=== PATIENT | female | born 1980 | race African-American/Black ===

== ENCOUNTER 2020-06-18 09:19 | Emergency (ER) | payer SELFPAY ==
[2020-06-18] VITALS (7 sets, daily range): BP systolic 121–134; BP diastolic 65–87
[~2020-06-18] VITALS: Ht 167.6 cm; Wt 113.4 kg
--- NOTE | 2020-06-18 09:20 | NUR ---
ED Nurse Note: Patient brought in by ambulance due to altered level of consciuosness. Per EMS, bystander found patient laying down on the grass and unresponsive. patient came in with eyes closed and not responding to questions, but withdraws to painful stimuli. Respirations are even and non labored.
--- NOTE | 2020-06-18 09:33 | Emergency Room Report ---
History of Present Illness General Chief Complaint: Altered Level of Consciousness Source: EMS Present Illness HPI Patient is an approximately 38-year-old female unknown past medical history brought in by EMS for altered mental status. Patient was found sleeping on grass in front of someone's home when EMS was called. Patient is non- cooperative with questioning. She keeps squinting her eyes and refuses to answer any questions. Allergies: Coded Allergies: UNABLE TO ASSESS (Unverified , 06/18/20) COVID-19 Screening Contact w/high risk pt: No Experienced COVID-19 symptoms?: No COVID-19 Testing performed AIRLINE TICKET AGENT: No Patient History Last Menstrual Period: unknown Reviewed Nursing Documentation: PMH: Agreed; PSxH: Agreed Nursing Documentation-PMH Past Medical History Deferred: Patient Unconscious Past Medical History: No Stated History Review of Systems All Other Systems: limited - Non-cooperative with questioning Physical Exam Vital Signs Date Time Temp Pulse Resp B/P (MAP) Pulse Ox O2 Delivery O2 Flow Rate FiO2 06/18/20 09:20 98.1 94 18 138/84 (102) 98 Room Air Sp02 EP Interpretation: reviewed, normal General Appearance: no apparent distress Head: normocephalic, atraumatic Eyes: bilateral eye normal inspection, bilateral eye PERRL ENT: hearing grossly normal, normal pharynx, no angioedema, normal voice Neck: full range of motion, supple/symm/no masses Respiratory: chest non-tender, lungs clear, normal breath sounds, speaking full sentences Cardiovascular #1: regular rate, rhythm, no edema Gastrointestinal: non tender, soft, overweight Rectal: deferred Musculoskeletal: no calf tenderness, no lower extremity edema Neurologic: mental health orderly III-XII nml as tested Psychiatric: other - Unable to assess at this time Skin: no rash Lymphatic: no adenopathy Medical Decision Making Diagnostic Impression: Primary Impression: Altered level of consciousness Additional Impressions: Encephalopathy UTI (urinary tract infection) ER Course Patient's labs demonstrate no significant acute abnormalities. Patient's urine is positive for methamphetamines. Patient appears to have a UTI and has been started on Rocephin. Otherwise patient's vital signs are stable. She continues to not be cooperative with questioning. Patient resting comfortably in bed. We will continue to monitor. Signed out to Dr. Lamar at 1400. Laboratory Tests Test 06/18/20 09:37 06/18/20 09:53 06/18/20 10:23 POC Whole Blood Glucose 64 MG/DL (74-106) L White Blood Count 9.4 K/UL (4.8-10.8) Red Blood Count 4.89 M/UL (4.20-5.40) Hemoglobin 12.6 G/DL (12.0-16.0) Hematocrit 38.3 % (37.0-47.0) Mean Corpuscular Volume 78 FL (80-99) L Mean Corpuscular Hemoglobin 25.7 PG (27.0-31.0) L Mean Corpuscular Hemoglobin Concent 32.8 G/DL (32.0-36.0) Red Cell Distribution Width 13.8 % (11.6-14.8) Platelet Count 379 K/UL (150-450) Mean Platelet Volume 4.9 FL (6.5-10.1) L Neutrophils (%) (Auto) 71.6 % (45.0-75.0) Lymphocytes (%) (Auto) 16.2 % (20.0-45.0) L Monocytes (%) (Auto) 7.1 % (1.0-10.0) Eosinophils (%) (Auto) 1.1 % (0.0-3.0) Basophils (%) (Auto) 4.1 % (0.0-2.0) H Sodium Level 139 MMOL/L (136-145) Potassium Level 4.9 MMOL/L (3.5-5.1) Chloride Level 104 MMOL/L (98-107) Carbon Dioxide Level 26 MMOL/L (21-32) Anion Gap 9 mmol/L (5-15) Blood Urea Nitrogen 8 mg/dL (7-18) Creatinine 1.0 MG/DL (0.55-1.30) Estimated Glomerular Filtration Rate > 60 mL/min (>60) Glucose Level 85 MG/DL (74-106) Calcium Level 8.8 MG/DL (8.5-10.1) Total Bilirubin 0.5 MG/DL (0.2-1.0) Aspartate Amino Transferase (AST) 33 U/L (15-37) Alanine Aminotransferase (ALT) 14 U/L (12-78) Alkaline Phosphatase 77 U/L (46-116) Total Protein 9.1 G/DL (6.4-8.2) H Albumin 3.2 G/DL (3.4-5.0) L Globulin 5.9 g/dL Albumin/Globulin Ratio 0.5 (1.0-2.7) L Thyroid Stimulating Hormone (TSH) 0.777 uiU/mL (0.358-3.740) Free Thyroxine 1.55 NG/DL (0.76-1.46) H Salicylates Level 3.2 ug/mL (2.8-20) Acetaminophen Level < 2 MCG/ML (10-30) L Serum Alcohol < 3 mg/dL Urine Color Pale yellow Urine Appearance Clear Urine pH 5 (4.5-8.0) Urine Specific [place] 1.020 (1.005-1.035) Urine Protein Negative (NEGATIVE) Urine Glucose (UA) Negative (NEGATIVE) Urine Ketones 1+ (NEGATIVE) H Urine Blood 2+ (NEGATIVE) H Urine Nitrite Positive (NEGATIVE) H Urine Bilirubin Negative (NEGATIVE) Urine Urobilinogen Normal MG/DL (0.0-1.0) Urine Leukocyte Esterase 1+ (NEGATIVE) H Urine RBC 2-4 /HPF (0 - 2) H Urine WBC 2-4 /HPF (0 - 2) Urine Squamous Epithelial Cells Few /LPF (NONE/OCC) Urine Bacteria Many /HPF (NONE) H Urine HCG, Qualitative Negative (NEGATIVE) Urine Opiates Screen Negative (NEGATIVE) Urine Barbiturates Screen Negative (NEGATIVE) Phencyclidine (PCP) Screen Negative (NEGATIVE) Urine Amphetamines Screen Positive (NEGATIVE) H Urine Benzodiazepines Screen Negative (NEGATIVE) Urine Cocaine Screen Negative (NEGATIVE) Urine Marijuana (THC) Screen Negative (NEGATIVE) EKG Diagnostic Results Troponin ordered: No - EKG ordered for acute encephalopathy EKG Time: 09:29 EP Interpretation: Neelam Petersen MD Rate: normal - 79 bpm Rhythm: NSR ST Segments: no acute changes ASA given to the pt in ED: No Chest X-Ray Diagnostic Results Chest X-Ray Diagnostic Results : Chest X-Ray Ordered: Yes # of Views/Limited/Complete: 1 View Indication: Other - Altered mental status EP Interpretation: Yes Interpretation: no consolidation, no effusion, no pneumothorax, no acute cardiopulmonary disease Impression: No acute disease Electronically Signed by: Neelam Petersen MD Last Vital Signs Date Time Temp Pulse Resp B/P (MAP) Pulse Ox O2 Delivery O2 Flow Rate FiO2 10/10/20 09:25 94 18 Room Air 06/18/20 09:20 98.1 138/84 (102) 98 Signed Out To: Dr. Lamar at 1400 Additional Instructions: Please note that this report is being documented using [employer] technology. This can lead to erroneous entry secondary to incorrect interpretation by the dictating instrument. Neelam Petersen M.D. Jun 18, 2020 09:33
--- NOTE | 2020-06-18 10:00 | NUR ---
ED Nurse Note: Patient taken to CT via gurney.
[2020-06-18 10:03] LABS: BASOPHILS % (AUTO) 4.1 % (0.0-2.0); EOSINOPHILS % (AUTO) 1.1 % (0.0-3.0); HEMATOCRIT 38.3 % (37.0-47.0); HEMOGLOBIN 12.6 G/DL (12.0-16.0); LYMPHOCYTES % (AUTO) 16.2 % (20.0-45.0); MEAN CORPUSCULAR VOLUME 78 FL (80-99); MONOCYTES % (AUTO) 7.1 % (1.0-10.0); NEUTROPHILS % (AUTO) 71.6 % (45.0-75.0); PLATELET COUNT 379 K/UL (150-450); RED BLOOD COUNT 4.89 M/UL (4.20-5.40); RED CELL DISTRIBUTION WIDTH 13.8 % (11.6-14.8); WHITE BLOOD COUNT 9.4 K/UL (4.8-10.8)
[2020-06-18 10:15] LABS: ANION GAP 9 mmol/L (5-15); BLOOD UREA NITROGEN 8 mg/dL (7-18); CALCIUM 8.8 MG/DL (8.5-10.1); CARBON DIOXIDE 26 MMOL/L (21-32); CHLORIDE 104 MMOL/L (98-107); SODIUM 139 MMOL/L (136-145)
--- NOTE | 2020-06-18 10:15 | NUR ---
ED Nurse Note: Patient came back from CT in stable condition.
--- NOTE | 2020-06-18 10:24 | NUR ---
ED Nurse Note: Collected urine then sent.
--- NOTE | 2020-06-18 10:25 | NUR ---
ED Nurse Note: Noted patient to be awake and moving while inserting straight cath.
[2020-06-18 10:27] LABS: ALANINE AMINOTRANSFERASE 14 U/L (12-78); ALBUMIN 3.2 G/DL (3.4-5.0); ALBUMIN/GLOBULIN RATIO 0.5 (1.0-2.7); ALKALINE PHOSPHATASE 77 U/L (46-116); ASPARTATE AMINO TRANSFERASE 33 U/L (15-37); BILIRUBIN,TOTAL 0.5 MG/DL (0.2-1.0)
[2020-06-18 10:38] LABS: POTASSIUM 4.9 MMOL/L (3.5-5.1)
[2020-06-18 10:46] LABS: APPEARANCE,URINE CLEAR; BILIRUBIN, URINE NEGATIVE (NEGATIVE); COLOR,URINE PALE YELLOW; GLUCOSE, URINE (UA) NEGATIVE (NEGATIVE); KETONES,URINE 1+ (NEGATIVE); LEUKOCYTE ESTERASE ,URINE 1+ (NEGATIVE); NITRITE,URINE POSITIVE (NEGATIVE); PH,URINE 5 (4.5-8.0); PROTEIN,URINE NEGATIVE (NEGATIVE); UROBILINOGEN,URINE NORMAL MG/DL (0.0-1.0)
[2020-06-18] MEDS ORDERED: cefTRIAXone 1 GM in NS 55 ML IVPB ONE (11:15)
--- NOTE | 2020-06-18 14:22 | NUR ---
ED Nurse Note: BS is [address] Lamar was notified. Pt is awake and speaking. Patient provided with sandwich and orange juice at the bed side.
--- NOTE | 2020-06-18 15:16 | NUR ---
ED Nurse Note: Patient is awake, crying and yelling in her room. [place] 50% consumed. Dr Lamar aware.
--- NOTE | 2020-06-18 15:51 | NUR ---
ED Nurse Note: Belongings placed on psych locker #2.
[2020-06-18] MEDS ORDERED: Haloperidol 5mg/ml Inj IM ONE (16:45)
--- NOTE | 2020-06-18 16:45 | Emergency Room Report ---
Physical Exam Vital Signs Date Time Temp Pulse Resp B/P (MAP) Pulse Ox O2 Delivery O2 Flow Rate FiO2 06/18/20 09:20 98.1 94 18 138/84 (102) 98 Room Air (Sage Lamar MD) Medical Decision Making Homeless Attestation Patient is homelss. Patient has been medically screened and is stable for outpatient follow up (Sage Lamar MD) Diagnostic Impression: Primary Impression: Altered level of consciousness Additional Impressions: Encephalopathy UTI (urinary tract infection) Amphetamine abuse ER Course Assumed care of the patient from the previous provider at approximately 1645. Please refer to initial note for full history and physical exam. Briefly, approximately 38-year-old Sujatha Leija brought in for altered mental status. Tox screen positive for amphetamines. She was found to have a urinary tract infection but labs otherwise within normal limits. Patient was originally nonverbal but now is screaming nonsensically in the ER. She required sedation w ith Haldol. Will arrange for psychiatric evaluation. PET team called Laboratory Tests Test 06/18/20 09:37 06/18/20 09:53 06/18/20 10:23 06/18/20 14:15 POC Whole Blood Glucose 64 MG/DL (74-106) L 73 MG/DL (74-106) L White Blood Count 9.4 K/UL (4.8-10.8) Red Blood Count 4.89 M/UL (4.20-5.40) Hemoglobin 12.6 G/DL (12.0-16.0) Hematocrit 38.3 % (37.0-47.0) Mean Corpuscular Volume 78 FL (80-99) L Mean Corpuscular Hemoglobin 25.7 PG (27.0-31.0) L Mean Corpuscular Hemoglobin Concent 32.8 G/DL (32.0-36.0) Red Cell Distribution Width 13.8 % (11.6-14.8) Platelet Count 379 K/UL (150-450) Mean Platelet Volume 4.9 FL (6.5-10.1) L Neutrophils (%) (Auto) 71.6 % (45.0-75.0) Lymphocytes (%) (Auto) 16.2 % (20.0-45.0) L Monocytes (%) (Auto) 7.1 % (1.0-10.0) Eosinophils (%) (Auto) 1.1 % (0.0-3.0) Basophils (%) (Auto) 4.1 % (0.0-2.0) H Sodium Level 139 MMOL/L (136-145) Potassium Level 4.9 MMOL/L (3.5-5.1) Chloride Level 104 MMOL/L (98-107) Carbon Dioxide Level 26 MMOL/L (21-32) Anion Gap 9 mmol/L (5-15) Blood Urea Nitrogen 8 mg/dL (7-18) Creatinine 1.0 MG/DL (0.55-1.30) Estimated Glomerular Filtration Rate > 60 mL/min (>60) Glucose Level 85 MG/DL (74-106) Calcium Level 8.8 MG/DL (8.5-10.1) Total Bilirubin 0.5 MG/DL (0.2-1.0) Aspartate Amino Transferase (AST) 33 U/L (15-37) Alanine Aminotransferase (ALT) 14 U/L (12-78) Alkaline Phosphatase 77 U/L (46-116) Total Protein 9.1 G/DL (6.4-8.2) H Albumin 3.2 G/DL (3.4-5.0) L Globulin 5.9 g/dL Albumin/Globulin Ratio 0.5 (1.0-2.7) L Thyroid Stimulating Hormone (TSH) 0.777 uiU/mL (0.358-3.740) Free Thyroxine 1.55 NG/DL (0.76-1.46) H Salicylates Level 3.2 ug/mL (2.8-20) Acetaminophen Level < 2 MCG/ML (10-30) L Serum Alcohol < 3 mg/dL Urine Color Pale yellow Urine Appearance Clear Urine pH 5 (4.5-8.0) Urine Specific [place] 1.020 (1.005-1.035) Urine Protein Negative (NEGATIVE) Urine Glucose (UA) Negative (NEGATIVE) Urine Ketones 1+ (NEGATIVE) H Urine Blood 2+ (NEGATIVE) H Urine Nitrite Positive (NEGATIVE) H Urine Bilirubin Negative (NEGATIVE) Urine Urobilinogen Normal MG/DL (0.0-1.0) Urine Leukocyte Esterase 1+ (NEGATIVE) H Urine RBC 2-4 /HPF (0 - 2) H Urine WBC 2-4 /HPF (0 - 2) Urine Squamous Epithelial Cells Few /LPF (NONE/OCC) Urine Bacteria Many /HPF (NONE) H Urine HCG, Qualitative Negative (NEGATIVE) Urine Opiates Screen Negative (NEGATIVE) Urine Barbiturates Screen Negative (NEGATIVE) Phencyclidine (PCP) Screen Negative (NEGATIVE) Urine Amphetamines Screen Positive (NEGATIVE) H Urine Benzodiazepines Screen Negative (NEGATIVE) Urine Cocaine Screen Negative (NEGATIVE) Urine Marijuana (THC) Screen Negative (NEGATIVE) (Sage Lamar MD) ER Course Patient signed out to me by previous physician. She has remained calm and cooperative in the emergency department. Tolerating p.o. Still awaiting PET eval. (Mervin Serrano M.D.) Reevaluation Time: 17:15 Last Vital Signs Date Time Temp Pulse Resp B/P (MAP) Pulse Ox O2 Delivery O2 Flow Rate FiO2 06/18/20 15:02 98.4 73 20 128/69 96 Room Air Reevaluation Impression Patient is been monitored in the emergency department for over 24 hours. She is now returned to her neurologic baseline, is awake, alert and oriented x3. Provided us with her name, Pat Lindsey. Patient states she is homeless and occasionally uses drugs. Does not follow-up regularly with PMD but is requesting referrals to nearby clinics. Also requesting nearby residential information. Patient denies any SI or HI at this time or other complaints. She has been receiving antibiotics for UTI will continue on oral antibiotics on an outpatient basis. Will refer her to mental health clinics in the area. She is stable for outpatient follow-up. Instructed to return with new or worsening symptoms (Sage Lamar MD) Disposition: HOME, SELF-CARE Condition: Improved Scripts Cephalexin* (KEFLEX*) 500 Mg Capsule 500 MG ORAL EVERY 12 HOURS, #14 CAP 0 Refills Prov: Sage Lamar MD 06/19/20 Referrals: NOT CHOSEN [facility]/,REFERRING (PCP) Additional Instructions: Please note that this report is being documented using [employer] technology. This can lead to erroneous entry secondary to incorrect interpretation by the dictating instrument. Sage Lamar MD Jun 18, 2020 16:45 Mervin Serrano M.D. Jun 19, 2020 05:28
--- NOTE | 2020-06-18 19:09 | NUR ---
HAND-OFF: Report given to Samantha DAVIDSON.
--- NOTE | 2020-06-18 19:14 | NUR ---
ED Nurse Note: Pt found laying in bed with eyes closed, breathing even and unlabored. No acute distress noted. Safety precautions in place, will continue to monitor.
--- NOTE | 2020-06-18 23:18 | NUR ---
ED Nurse Note: pt laying in bed, pt is awake requesting blanket. [place] offered. No acute distress noted, will continue to monitor.
--- NOTE | 2020-06-19 02:34 | NUR ---
ED Nurse Note: pt laying in bed with eyes closed, waked up when name is called. No acute distress noted, safety precautions continue to be in place.
--- NOTE | 2020-06-19 04:45 | NUR ---
ED Nurse Note: pt awake, meal provided and clean linens given. Pt able to perform self-grooming.
[2020-06-19] MEDS ORDERED: cefTRIAXone 1 GM in NS 55 ML IVPB ONE (06:00)
[2020-06-19 06:40] VITALS: BP 117/81
--- NOTE | 2020-06-19 06:40 | NUR ---
ED Nurse Note: pt laying in bed with eyes closed, breathing even and unlabored, no acute distress noted. Safety precautions in place.
--- NOTE | 2020-06-19 07:12 | NUR ---
HAND-OFF: Report given to LETY Alejandra .
--- NOTE | 2020-06-19 07:15 | NUR ---
ED Nurse Note: Received report from Samantha DAVIDSON. Pt seen sleeping in bed. Not in any distress. Safety and comfort provided. Will cont to monitor.
[2020-06-19 12:49] VITALS: BP 119/78
--- NOTE | 2020-06-19 12:53 | NUR ---
ED Nurse Note:pt. is sleeping, no signs of distress, meals provided
[2020-06-19 17:00] VITALS: BP 126/79
[2020-06-19] MEDS ORDERED: CEPHALEXIN500 MG ORAL (17:14)
[2020-06-19] MEDS ORDERED: Cephalexin 500mg cap ORAL SCH ×2 (17:45)
[2020-06-19] MEDS ORDERED: [UNRECOGNIZED DRUG - REMARK] MISC ONE (17:45)
[2020-06-19] MEDS ORDERED: cefTRIAXone 1 GM in NS 55 ML IVPB SCH (18:00)
--- NOTE | 2020-06-19 18:32 | NUR ---
ED Nurse Note:provided pt. with clothes, 3 days supply of keflex, food, list of shelters, VSS, pt. refused to leave room, called security but pt. still refusing to get off the bed, she is A/ox3, ambulatory with steady gait, security called [employer] to have pt. leave ER
[2020-06-19 20:00] VITALS: BP 136/82
--- NOTE | 2020-06-19 21:00 | NUR ---
Nurse Note: Pt is resting in bed, appears calm when not distrubed. Pt is medically cleared and ready for discharge by ER MD and psychiatrist. Pt is provided 3 day supply of prescribed medications, resources provided, clothes provided, food and water provided. Pt refuses to leave, does not get out of [facility] and states "I am not okay. I did not get treated by the hospital. I am worse than when I first came in. I am now hearing voices and you cannot help me. I am placed on a 72 hour hold and no psychiatrist has seen me. I cannot leave." RN and security at pt side. Security called [employer]; officer Kristi #[id number] and bar supervisor arrived to pt side. After an extensive assessment and converstion with pt, pt remain in ER, not on a hold. Advised to call [employer] in AM if pt remains uncooperative.
--- NOTE | 2020-06-19 23:40 | NUR ---
Nurse Note: Pt ambulated with steady gait to restroom. No signs of distress
--- NOTE | 2020-06-20 00:10 | NUR ---
Nurse Note: Pt refused vitals, not cooperative when nursing staff approachs pt. Pt not cooperating. All safety measures met; will continue to monitor.
[2020-06-20 04:00] VITALS: BP 132/74
--- NOTE | 2020-06-20 04:14 | NUR ---
Nurse Note: Pt calm, asleep when not awaken. Pt shows no signs of distress. Chest rise and fall noted, RA. All safety measures met; will continue to monitor.
--- NOTE | 2020-06-20 06:18 | Diagnostic Imaging Report ---
EXAM: XR Chest, 1 View CLINICAL HISTORY: AMS TECHNIQUE: Frontal view of the chest. COMPARISON: No relevant prior studies available. FINDINGS: Lungs: Unremarkable. No consolidation. Pleural space: Unremarkable. No pneumothorax. Heart: Unremarkable. No cardiomegaly. Mediastinum: Unremarkable. Bones/joints: Unremarkable. IMPRESSION: No pneumothorax.
--- NOTE | 2020-06-20 06:18 | Diagnostic Imaging Report ---
EXAM: CT Head Without Intravenous Contrast CLINICAL HISTORY: AMS TECHNIQUE: Axial computed tomography images of the head/brain without intravenous contrast. CTDI is 53.40 mGy and DLP is 1072.20 mGy-cm. One or more of the following dose reduction techniques were used: automated exposure control, adjustment of the mA and/or kV according to patient size, use of iterative reconstruction technique. COMPARISON: No relevant prior studies available. FINDINGS: No acute intracranial hemorrhage. No midline shift or mass effect. The territorial umana-white matter differentiation is maintained throughout. The ventricles and sulci are commensurate with age. The visualized orbits appear grossly unremarkable. The calvarium is intact. The visualized paranasal sinuses and mastoid air cells are grossly clear. IMPRESSION: No acute intracranial hemorrhage, midline shift, or mass effect.
--- NOTE | 2020-06-20 07:05 | NUR ---
Nurse Note: Pt arousable, still verbally agressive. Pt refuses to sit up from [facility]. Pt repeats "I am going to be placed on a 72 hr hold from [employer], not y'all.. leave my room". Pt refuses all treatment. Endorsed care to LETY Calhoun for continutiy of care.
--- NOTE | 2020-06-20 07:06 | NUR ---
ED Nurse Note: Recieved report from LETY Funez. Patient easily arousable, verbally agressive. Patient refuses to sit up from julisa otero "I am going to be placed on a 72 hr hold from [employer], leave my room". Patient AAO x4, VSS at this time, has steady gait, refusing to leave emergency room.
--- NOTE | 2020-06-20 10:41 | NUR ---
ED Nurse Note: patient refuse to get up from the g[place]et and refuse to talk awake alert dont want to leave wants to sleep .
[2020-06-20 10:43] VITALS: BP 130/70
--- NOTE | 2020-06-20 12:00 | NUR ---
PATIENT refused to talk to anyone woke up and states she doesnot want to leave [employer] is speaking to the patient
--- NOTE | 2020-06-20 13:33 | NUR ---
patient is been discharged with [facility] to go home . since patient refuse to leave [employer] helped to escort her out of the hospital
[2020-06-20 13:35] VITALS: BP 130/80
--- NOTE | 2020-06-20 13:44 | NUR ---
patient has been provided with group home referral and clinic referrals patient refuse to sign the homeless discharge paper states she doesnot wants to have anyone to know she is homeless
== END 2020-06-20 13:45 | disposition home or self-care (01) ==
LOC: EDBD 09:19 → EMR 09:32
DX: G93.40 Encephalopathy, unspecified (principal); N39.0 Urinary tract infection, site not specified; R41.82 Altered mental status, unspecified; F15.10 Other stimulant abuse, uncomplicated
CPT/HCPCS: 36415; 70450; 71045; 80053; 80307; 81003; 81025; 82962; 84439; 84443; 85025; 87086; 87181; 96361; 96365; 96366; 96372; 96375; 99285; G0480; J0696; J1630; J7030